=== PATIENT | male | born 1955 | race Caucasian/White ===

== ENCOUNTER 2016-12-23 13:22 | Day surgery (SDC) | payer OTHER ==
[~2016-12-23 13:22] MED LIST: TRAM100T19 PO
[2016-12-23 13:53] VITALS: BP 151/96; PULSE 72; RESP 20; TEMP 97.9; O2SAT 97
[2016-12-23] MEDS ORDERED: ALPR1TAB3 PO (14:04)
[2016-12-23] MEDS ORDERED: BACT400T PO (14:04)
[2016-12-23] MEDS ORDERED: BACL10TA PO (14:04)
[2016-12-23] MEDS ORDERED: TRAM50TA PO (14:05)
[2016-12-23 14:55] VITALS: BP 131/84; PULSE 69; RESP 20; TEMP 98; O2SAT 97
[2016-12-23] MEDS ORDERED: VANCOMYCIN 1,500 MG/NS 500 ML IV SCH ×2 (15:00)
[2016-12-23] MEDS ORDERED: SODIUM CHLORIDE 0.9% FLUSH 10 ML FLUSH IV FLUSH PRN (15:45)
[2016-12-23] MEDS ORDERED: SODIUM CHLORIDE 0.9% FLUSH 10 ML FLUSH IVF PRN ×2 (16:45)
--- NOTE | 2016-12-23 16:48 | PD.RAD ---
Radiology Post PICC Prog Note Pre Procedure Diagnosis: (1) Toe osteomyelitis, right Post Procedure Diagnosis: (1) Toe osteomyelitis, right Procedure: Right PICC line placement Procedure Date: Dec 23, 2016 Supervising Radiologist Zachary Talamantes Proceduralist/Assist: Camille Hurley, RT(R), Kiran David RT(R)() Device Side: Right Upper Sorbian: 4 single lumen cm: 40 Catheter: Power PICC Plan of Activity Patient to Unit: ROPU Patient Condition: Good PICC line can be used immediately Zachary Talamantes MD Dec 23, 2016 16:48
[2016-12-24] MEDS ORDERED: SODIUM CHLORIDE 0.9% FLUSH 10 ML FLUSH IV FLUSH SCH (09:00)
[2016-12-24] MEDS ORDERED: SODIUM CHLORIDE 0.9% FLUSH 10 ML FLUSH IVF SCH (09:00)
--- NOTE | 2016-12-27 10:56 | RADRPT ---
EXAM DATE/TIME: 12/23/2016 14:44 [facility] COMPARISON: No previous studies available for comparison. INDICATIONS : Patient with osteomyelitis in need of PICC line placement for antibiotics. MEDICAL HISTORY : Osteomyelitis right 3rd toe, Chronic back pain, HTN, COPD, Diabetes SURGICAL HISTORY : Tonsillectomy, Back surgery, Right 4th toe amputation ENCOUNTER: Initial ACUITY: 2 months PAIN SCORE: 0/10 FLUORO TIME: 0.21 minutes IMAGE SERIES: 1 ACCESS: Right basilic vein DEVICE(S): 1.) 4 Kyrgyz single lumen 40 cm Xcela Power PICC PROCEDURE : 1. Ultrasound guidance for venous catheterization. 2. Fluoroscopic guidance. 3. Ultrasound & fluoroscopic guided central venous Power PICC line placement. The risks, benefits and alternatives to the procedure were explained and verbal and written consent w as obtained. The site was prepped in sterile fashion. Full sterile technique was used, including ca p, mask, sterile gloves and gown and a large sterile sheet. Hand hygiene and 2% chlorhexidine prep w as utilized per protocol for cutaneous antisepsis with appropriate dry time for site. The skin and s ubcutaneous tissues were infiltrated with local anesthetic solution. Under direct ultrasound guidance, a suitable vein was accessed and a measuring guidewire was introduc ed and positioned in the central venous system. The ultrasound images depicting access guidance were saved and stored to PACS for permanent record. A Power Injectable PICC line was cut to prescribed length and introduced, positioned with tip at the cavoatrial junction level. The line was flushed and secured per protocol. CONCLUSION: 1. Uncomplicated central venous Power PICC line placement. 2. The PICC line can be used immediately. Zachary Talamantes MD on December 27, 2016 at 10:53 Board Certified Radiologist. This report was verified electronically.
== END 2016-12-23 17:00 | disposition home or self-care (01) ==
LOC: HROP 13:22 → HRIP 13:30 → HROP 17:00
PROVIDERS: ATTEND Specialist
DX: Z45.2 Encounter for adjustment and management of vascular access device (principal); M86.9 Osteomyelitis, unspecified; I10 Essential (primary) hypertension; J44.9 Chronic obstructive pulmonary disease, unspecified; E11.69 Type 2 diabetes mellitus with other specified complication
CPT/HCPCS: 36569; 76937; 77001; 96365; 96366; C1751; J1642; J3370; J7040

== ENCOUNTER 2017-04-19 12:56 | Inpatient (IN) | payer OTHER, MEDICARE ==
[~2017-04-19] VITALS: Ht 175.3 cm; Wt 84.9 kg
[~2017-04-19 12:56] MED LIST changes: +ALPR1TAB3 PO; +BACL10TA PO; +BACT400T PO; -TRAM100T19 PO; +TRAM50TA PO
[2017-04-19 12:58] VITALS: BP 163/93; PULSE 86; RESP 20; TEMP 98.3; O2SAT 97
--- NOTE | 2017-04-19 13:05 | PD ---
Physical Exam Date Seen by Provider: Apr 19, 2017 Time Seen by Provider: 13:03 Narrative 62 yo male here for eval of right big toe infection. per patient bad since monday but has been taking antibiotics for infections this summer. Has appointment with podiatry but not until next week. No diabetes. Vitals are stable in triage. Awaiting bed placement. Data Data Last Documented VS Vital Signs Date Time Temp Pulse Resp B/P (MAP) Pulse Ox O2 Delivery O2 Flow Rate FiO2 04/19/17 12:58 98.3 86 20 163/93 (116) 97 Room Air [facility] Medical Record Reviewed: Yes Supervised Visit with JAN: No Cali Cannon Apr 19, 2017 13:05
--- NOTE | 2017-04-19 14:30 | PD ---
HPI Chief Complaint: Skin Problem Time Seen by Provider: 14:29 Travel History International Travel<30 days: No Contact w/Intl Traveler<30days: No Traveled to known affect area: No History of Present Illness HPI 62 YO M with PMH of osteomyelitis of the right foot, DM, HTN presents to the ED for evaluation of right great toe pain and swelling times "a few days." He endorses running over the toe with his grocery cart about a month ago. He states that he noticed a blister on his toe about a week ago and he was using Silvadene on it with no improvement. Pain and swelling worsened overnight prompted seeking treatment today. He denies fever, chills, nausea, vomiting. He endorses chronic recurring foot infections, last treated earlier this year. He called Dr. Yang, his account contact associate and has follow-up next week. PFSH Past Medical History Diabetes: Yes Past Surgical History Tonsillectomy: Yes Social History Alcohol Use: Yes (2-3 times a weekly) Tobacco Use: No Substance Use: No Allergies-Medications (Allergen,Severity, Reaction): Coded Allergies: naproxen (Unverified Allergy, Mild, Rash, 04/19/17) lisinopril (Verified Allergy, Unknown, LIP SWELLING, 04/19/17) Reported Meds & Prescriptions Reported Meds & Active Scripts Active Reported Tramadol (Tramadol HCl) 50 Mg Tab 100 Mg PO BID PRN Alprazolam 1 Mg Tab 1 Mg PO HS PRN Baclofen 10 Mg Tab 10 Mg PO TID Review of Systems Except as stated in HPI: all other systems reviewed are Neg Physical Exam Narrative GENERAL: Well-nourished, well-developed pleasant white male in no acute distress. SKIN: Focused skin assessment warm/dry. HEAD: Normocephalic. EYES: No scleral icterus. No injection or drainage. NECK: Supple, trachea midline. No JVD or lymphadenopathy. CARDIOVASCULAR: Regular rate and rhythm without murmurs, gallops, or rubs. RESPIRATORY: Breath sounds equal bilaterally. No accessory muscle use. GASTROINTESTINAL: Abdomen soft, non-tender, nondistended. MUSCULOSKELETAL: No cyanosis, or edema. FOCUSED RIGHT LOWER EXTREMITY EXAM: 2+ DP pulse. The great toe is tender, erythematous and edematous. There is a small amount of purulent fluid draining from the tip of the nailbed. The foot is warm, edematous and tender. There is lymphatic streaking to the medial aspect of the mid hughes. BACK: Nontender without obvious deformity. No CVA tenderness. Data Data Last Documented VS Vital Signs Date Time Temp Pulse Resp B/P (MAP) Pulse Ox O2 Delivery O2 Flow Rate FiO2 04/19/17 16:23 76 18 121/73 (89) 97 04/19/17 12:58 98.3 Room Air Orders Orders Basic Metabolic Panel (Bmp) (04/19/17 14:46) Complete Blood Count With Diff (04/19/17 14:46) Blood Culture (04/19/17 14:48) Iv Access Insert/Monitor (04/19/17 14:48) Vancomycin Inj (Vancomycin Inj) (04/19/17 15:00) Toe (Min 2vws) (04/19/17 15:14) Westergren Sedimentation Rate (04/19/17 16:09) C-Reactive Protein (Crp) (04/19/17 16:09) Vascular Access Team Consult/P PRN (04/19/17 16:16) Vascular Poc Ultrasound (04/19/17 ) Mri Lower Leg W/Wo Contrast (04/19/17 ) Admit Order (Ed Use Only) (04/19/17 17:01) Labs Laboratory Tests Test 04/19/17 15:30 White Blood Count 7.9 TH/MM3 Red Blood Count 4.82 MIL/MM3 Hemoglobin 14.6 GM/DL Hematocrit 43.3 % Mean Corpuscular Volume 89.7 FL Mean Corpuscular Hemoglobin 30.4 PG Mean Corpuscular Hemoglobin Concent 33.9 % Red Cell Distribution Width 14.3 % Platelet Count 149 TH/MM3 Mean Platelet Volume 9.0 FL Neutrophils (%) (Auto) 67.4 % Lymphocytes (%) (Auto) 18.8 % Monocytes (%) (Auto) 12.1 % Eosinophils (%) (Auto) 1.2 % Basophils (%) (Auto) 0.5 % Neutrophils # (Auto) 5.3 TH/MM3 Lymphocytes # (Auto) 1.5 TH/MM3 Monocytes # (Auto) 1.0 TH/MM3 Eosinophils # (Auto) 0.1 TH/MM3 Basophils # (Auto) 0.0 TH/MM3 CBC Comment DIFF FINAL Differential Comment Erythrocyte Sedimentation Rate 35 mm/hr Blood Urea Nitrogen 16 MG/DL Creatinine 0.78 MG/DL Random Glucose 117 MG/DL Calcium Level 9.0 MG/DL Sodium Level 137 MEQ/L Potassium Level 4.0 MEQ/L Chloride Level 102 MEQ/L Carbon Dioxide Level 26.9 MEQ/L Anion Gap 8 MEQ/L Estimat Glomerular Filtration Rate 100 ML/MIN Hemoglobin A1c 6.2 % C-Reactive Protein 6.52 MG/DL MDM Medical Decision Making Medical Screen Exam Complete: Yes Emergency Medical Condition: Yes Differential Diagnosis Cellulitis versus osteomyelitis versus sepsis Narrative Course 62 YO M with PMH of osteomyelitis, DM, HTN presents to the ED for evaluation of right great toe pain and swelling times "a few days." He endorses running over the toe with his grocery cart about a month ago. He states that he noticed a blister on his toe about a week ago and he was using Silvadene on it with no improvement. Pain and swelling worsened overnight prompted seeking treatment today. He denies fever, chills, nausea, vomiting. He endorses chronic recurring foot infections, last treated earlier this year. Vitals reviewed. Physical exam reveals a nontoxic-appearing white male in no acute distress. The left great toe, foot and lower leg show signs of cellulitis. Given his history is currently turned for osteomyelitis. Blood cultures were ordered. Vancomycin was administered. No elevation of the white count. CRP 6.52, sedimentation rate 35. X-rays show subacute tuft fracture of the great toe.. I spoke with Dr. Mcguire who recommends MRI of the extremity--pending at this time. We'll admit the patient to medicine. Dr. Roman agrees to accept the patient. Please see medicine and podiatry notes for disposition. Thu Santo Apr 19, 2017 14:30
[2017-04-19] MEDS ORDERED: VANCOMYCIN INJ 1,000 MG in SODIUM CHLOR 0.9% 250 ML INJ 250 ML IV ONE (15:00)
--- NOTE | 2017-04-19 15:02 | PD ---
Data Data Last Documented VS Vital Signs Date Time Temp Pulse Resp B/P (MAP) Pulse Ox O2 Delivery O2 Flow Rate FiO2 04/19/17 12:58 98.3 86 20 163/93 (116) 97 Room Air Orders Orders Basic Metabolic Panel (Bmp) (04/19/17 14:46) Complete Blood Count With Diff (04/19/17 14:46) Blood Culture (04/19/17 14:48) Iv Access Insert/Monitor (04/19/17 14:48) Toe (Min 2vws) (04/19/17 14:49) Vancomycin Inj (Vancomycin Inj) (04/19/17 15:00) MDM Supervised Visit with JAN: Yes Narrative Course The history, exam, and medical decision-making in the associated midlevel provider note were completed with my assistance. I reviewed and agree with the findings presented. I attest that I had a [id number] encounter with the patient on the same day, and personally performed and documented my assessment and findings in the medical record. *My assessment and Findings: This is a 62-year-old male who has a history of recurrent osteomyelitis in his great toe. He presents today with increasing redness and swelling of his toe. He has a financial recording clerk appointment but not for a week. Grossly the toe feels infected and he has some lymphatic streaking up the leg. I suspect he will require admission for IV antibiotics. Gricelda Tejada MD Apr 19, 2017 15:02
--- NOTE | 2017-04-19 15:36 | RADRPT ---
EXAM DATE/TIME: 04/19/2017 15:06 [facility] COMPARISON: No previous studies available for comparison. INDICATIONS : Ran over toe with grocery cart one month ago. Swelling started Monday. MEDICAL HISTORY : Osteomyelitis right 3rd toe, Chronic back pain, HTN, COPD, Diabetes SURGICAL HISTORY : Tonsillectomy, Back surgery, Right 4th toe amputation ENCOUNTER: Initial ACUITY: 1 month PAIN SCORE: 0/10 LOCATION: Right Foot, 1st digit. FINDINGS: 3 views of the right great toe reveal a subacute fracture from the top. No significant angulation or distraction. There is soft tissue swelling noted. Osteoarthritic changes noted throughout the foot. T here is prior amputation of the fourth toe. No radiopaque foreign body. CONCLUSION: 1. Subacute fracture of the tuft of the great toe. Jb Keane Jr., MD on April 19, 2017 at 15:29 Board Certified Radiologist. This report was verified electronically.
[2017-04-19 15:55] LABS: AUTOMATED NEUTROPHIL # 5.3 TH/MM3 (1.8-7.7); BASOPHIL % 0.5 % (0.0-2.0); EOSINOPHIL # 0.1 TH/MM3 (0-0.4); EOSINOPHIL % 1.2 % (0.0-4.0); HEMATOCRIT 43.3 % (39.0-51.0); HEMO FLAGS DIFF FINAL; LYMPH % 18.8 % (9.0-44.0); LYMPHOCYTE # 1.5 TH/MM3 (1.0-4.8); MEAN CELL VOLUME 89.7 FL (80.0-100.0); MEAN CORPUSCULAR HEMOGLOBIN 30.4 PG (27.0-34.0); MEAN CORPUSCULAR HGB CONC 33.9 % (32.0-36.0); MONO % 12.1 % (0.0-8.0); NEUT % 67.4 % (16.0-70.0); PLATELET COUNT 149 TH/MM3 (150-450); RED BLOOD COUNT 4.82 MIL/MM3 (4.50-5.90); RED CELL DISTRIBUTION WIDTH 14.3 % (11.6-17.2); WHITE BLOOD COUNT 7.9 TH/MM3 (4.0-11.0)
[2017-04-19 16:11] LABS: BICARBONATE 26.9 MEQ/L (21.0-32.0)
[2017-04-19 16:23] VITALS: BP 121/73; PULSE 76; RESP 18; O2SAT 97
[2017-04-19] MEDS ORDERED: GADODIAMIDE PF 287 MG/ML 5 ML VIAL (for RAD MRI) IV PUSH ONE (17:03)
--- NOTE | 2017-04-19 17:33 | HHI.HP ---
[facility] [place] [facility] Nguyễn Schwarz, Admission Diagnosis cellulitis right foot Diagnoses: Chief Complaint: Right foot infection Travel History International Travel<30 Days: No Contact w/Intl Traveler <30 Da: No Traveled to Known Affected Are: No History of Present Illness Written by Joe Stover, acting as scribe for Dr. Roman on 04/19/17 at 17:33. 62-year-old male with a past medical history of HTN, borderline DM, chronic back pain, and recurrent right foot infections who presented with right foot infection. The patient states that last weekend he noticed a blister on his right great toe. He states the blister started oozing around Monday. He states that he was using topical Silvadene on it. He states that yesterday the toe became more red and swollen. 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 Yang, and has an appointment to see him next week. The patient felt like the infection in his foot was getting worse today so he came to the ED for evaluation. When asked about any injury, the patient does recall that he ran over his toe with grocery cart about a month ago. The patient denies any fevers or chills. He does have a history of right fourth toe amputation. He also had been dealing with right third toe infection last spring. Podiatry was contacted from the ED and recommended MRI and consultation. Review of Systems Except as stated in HPI: all other systems reviewed are Neg Past Family Social History Past Medical History Borderline diabetes History of hypertension, currently off medication Chronic back pain Insomnia History of right foot infections Past Surgical History Right fourth toe amputation Tonsillectomy Back surgery Reported Medications Reported Tramadol (Tramadol HCl) 50 Mg Tab 100 Mg PO BID PRN Alprazolam 1 Mg Tab 1 Mg PO HS PRN Baclofen 10 Mg Tab 10 Mg PO TID Allergies: Coded Allergies: naproxen (Unverified Allergy, Mild, Rash, 04/19/17) lisinopril (Verified Allergy, Unknown, LIP SWELLING, 04/19/17) Family History Father at age 77 of a heart attack Mother 84 and healthy Social History History tobacco use, quit 12 years ago Drinks 2 or 3 beers most days, denies any problem with withdrawals Denies any drug use Physical Exam Vital Signs Vital Signs Date Time Temp Pulse Resp B/P (MAP) Pulse Ox O2 Delivery O2 Flow Rate FiO2 04/19/17 16:23 76 18 121/73 (89) 97 04/19/17 12:58 98.3 86 20 163/93 (116) 97 Room Air Physical Exam GENERAL: Well-developed well-nourished. In no acute distress. SKIN: Warm and dry. Right great toe infection. HEENT: Normocephalic. Pupils equal and round. Mucous membranes pink and moist. CARDIOVASCULAR: Regular rate and rhythm. No murmur appreciated. RESPIRATORY: No accessory muscle use. Clear to auscultation. Breath sounds equal bilaterally. GASTROINTESTINAL: Abdomen soft, non-tender, nondistended. Bowel sounds x4. MUSCULOSKELETAL: Right great toe with swelling, erythema; good capillary refill. Lymphangitic streaking up the right medial leg. Previous right fourth toe amputation. Palpable DP pulse on the right. NEUROLOGICAL: Awake and alert. No focal neurological deficits. Moves upper and lower extremities spontaneously. Normal speech. PSYCHIATRIC: Appropriate mood and affect; insight and judgment normal. Laboratory Laboratory Tests Test 04/19/17 15:30 White Blood Count 7.9 Red Blood Count 4.82 Hemoglobin 14.6 Hematocrit 43.3 Mean Corpuscular Volume 89.7 Mean Corpuscular Hemoglobin 30.4 Mean Corpuscular Hemoglobin Concent 33.9 Red Cell Distribution Width 14.3 Platelet Count 149 Mean Platelet Volume 9.0 Neutrophils (%) (Auto) 67.4 Lymphocytes (%) (Auto) 18.8 Monocytes (%) (Auto) 12.1 Eosinophils (%) (Auto) 1.2 Basophils (%) (Auto) 0.5 Neutrophils # (Auto) 5.3 Lymphocytes # (Auto) 1.5 Monocytes # (Auto) 1.0 Eosinophils # (Auto) 0.1 Basophils # (Auto) 0.0 CBC Comment DIFF FINAL Differential Comment Blood Urea Nitrogen 16 Creatinine 0.78 Random Glucose 117 Calcium Level 9.0 Sodium Level 137 Potassium Level 4.0 Chloride Level 102 Carbon Dioxide Level 26.9 Anion Gap 8 Estimat Glomerular Filtration Rate 100 Date/Time Source Procedure Growth Status 04/19/17 15:35 Blood Peripheral Aerobic Blood Culture Pending Received 04/19/17 15:35 Blood Peripheral Anaerobic Blood Culture Pending Received Result Diagram: 04/19/17 1530 04/19/17 1530 Imaging Last Impressions Toe X-Ray 04/19/17 1514 Signed Impressions: Service Date/Time: Wednesday, April 19, 2017 15:06 - CONCLUSION: 1. Subacute fracture of the tuft of the great toe. MD Maricel Jenkins Jr. VTE Risk Assessment Caprini VTE Risk Assessment: Mod/High Risk (score >= 2) Caprini Risk Assessment Model Point Value = 1 Point Value = 2 Point Value = 3 Point Value = 5 Age 41-60 Minor surgery BMI > 25 kg/m2 Swollen legs Varicose veins or History of unexplained or recurrent spontaneous Oral contraceptives or hormone replacement Sepsis (< 1 month) Serious lung disease, including pneumonia (< 1 month) Abnormal pulmonary function Acute myocardial infarction Congestive heart failure (< 1 month) History of inflammatory bowel disease Medical patient at bed rest Age 61-74 Arthroscopic surgery Major open surgery (> 45 min) Laparoscopic surgery (> 45 min) Malignancy Confined to bed (> 72 hours) Immobilizing plaster cast Central venous access Age >= 75 History of VTE Family history of VTE Factor V Leiden Prothrombin [id number] Lupus anticoagulant Anticardiolipin antibodies Elevated serum homocysteine Heparin-induced thrombocytopenia Other congenital or acquired thrombophilia Stroke (< 1 month) Elective arthroplasty Hip, pelvis, or leg fracture Acute spinal cord injury (< 1 month) Prophylaxis Regimen Total Risk Factor Score Risk Level Prophylaxis Regimen 0-1 Low Early ambulation 2 Moderate Order ONE of the following: *Sequential Compression Device (SCD) *Heparin 5000 units SQ BID 3-4 Higher Order ONE of the following medications: *Heparin 5000 units SQ TID *Enoxaparin/Lovenox 40 mg SQ daily (WT < 150 kg, CrCl > 30 mL/min) *Enoxaparin/Lovenox 30 mg SQ daily (WT < 150 kg, CrCl > 10-29 mL/min) *Enoxaparin/Lovenox 30 mg SQ BID (WT < 150 kg, CrCl > 30 mL/min) AND/OR *Sequential Compression Device (SCD) 5 or more Highest Order ONE of the following medications: *Heparin 5000 units SQ TID (Preferred with Epidurals) *Enoxaparin/Lovenox 40 mg SQ daily (WT < 150 kg, CrCl > 30 mL/min) *Enoxaparin/Lovenox 30 mg SQ daily (WT < 150 kg, CrCl > 10-29 mL/min) *Enoxaparin/Lovenox 30 mg SQ BID (WT < 150 kg, CrCl > 30 mL/min) AND *Sequential Compression Device (SCD) Assessment and Plan Assessment and Plan 62-year-old male with a past medical history of HTN, borderline DM, chronic back pain, and recurrent right foot infections who presented with right foot infection Right great toe infection: Patient with significant swelling, erythema, warmth, and lymphangitic streaking from the right great toe. Afebrile with no leukocytosis. Toe x-ray shows subacute tuft fracture, possibly secondary to recent shopping cart trauma. Podiatry was contacted and recommended MRI and consultation to them. IV antibiotics with vancomycin and Levaquin. Follow-up podiatry recommendations. Consult ID. Borderline diabetes: Diet controlled per patient, never been on medications. Check hemoglobin A1c. Monitor Accu-Cheks. SSI coverage if needed. Hypertension: Patient states she is recently started on lisinopril, however had throat swelling and was taken off. Currently on no medications. Clonidine as needed. Monitor and adjust medications as needed. Other chronic medical conditions include chronic back pain and insomnia: Stable of this time will continue home medications as indicated. DVT prophylaxis: Heparin This note was transcribed by racheal [Joe Stover]. I, Dr. Gela Roman personally performed the history, physical exam, and medical decision making; and confirmed the accuracy of the information in the transcribed note. Authenticated by Dr. Gela Roman on 04/19/17 at 17:33. Discussed Condition With Patient, ED staff Joe Stover Apr 19, 2017 17:33 Gela Roman MD Apr 19, 2017 17:33
[2017-04-19] MEDS ORDERED: SODIUM CHLORIDE 0.9% FLUSH 10 ML FLUSH IV FLUSH PRN (17:45)
[2017-04-19] MEDS ORDERED: NALOXONE HCL 0.4 MG/ML AMP IV PRN (17:45)
[2017-04-19] MEDS ORDERED: ONDANSETRON HCL 4 MG/2 ML VIAL IVP PRN (17:45)
[2017-04-19] MEDS ORDERED: LACTULOSE SYRUP 20 GM/30 ML CUP PO PRN (17:45)
[2017-04-19] MEDS ORDERED: BISACODYL 10 MG SUPP RECTAL PRN (17:45)
[2017-04-19] MEDS ORDERED: traMADol HCL 50 MG TAB PO PRN (17:45)
[2017-04-19] MEDS ORDERED: MORPHINE SULFATE 4 MG/ML INJ IV PRN (17:45)
[2017-04-19] MEDS ORDERED: MAGNESIUM HYDROXIDE SUSP 30 ML CUP PO PRN (17:45)
[2017-04-19] MEDS ORDERED: SENNOSIDES 8.6 MG TAB PO PRN (17:45)
[2017-04-19] MEDS: BACLOFEN 10 MG TAB PO SCH (18:00)
[2017-04-19] MEDS ORDERED: cloNIDine HCL 0.1 MG TAB PO PRN (18:00)
[2017-04-19] MEDS ORDERED: GLUCAGON 1 MG/ML VIAL OTHER PRN (18:00)
[2017-04-19] MEDS ORDERED: Vancomycin Consult Pharmacy 1 EA OTHER SCH (18:00)
[2017-04-19] MEDS ORDERED: DEXTROSE 50% IN WATER 50 ML VIAL(D50) IV PRN (18:00)
[2017-04-19 20:50] VITALS: BP 153/80; PULSE 78; RESP 20; TEMP 97.8; O2SAT 94
[2017-04-19] MEDS: INSULIN ASPART SUPPLEMENTAL SCALE SQ SCH (21:00)
--- NOTE | 2017-04-19 21:01 | RADRPT ---
EXAM DATE/TIME: 04/19/2017 19:46 [facility] COMPARISON: No previous studies available for comparison. INDICATIONS : Right great toe swelling with discharge. CONTRAST: 17 cc Omniscan (gadodiamide) IV MEDICAL HISTORY : None. SURGICAL HISTORY : Tonsillectomy. Discectomy, lumbar. Right toe surgery. ENCOUNTER: Subsequent ACUITY: 1 month PAIN SCORE: 0/10 LOCATION: Right foot TECHNIQUE: Multiplanar, multisequence MRI examination was performed without contrast and after the intravenous a dministration of gadolinium. FINDINGS: There is extensive marrow edema and marrow enhancement of the distal phalanx of the great toe. There is surrounding soft tissue swelling and edema. The findings are most characteristic of osteomyelitis of the distal phalanx great toe. The fourth toe has been previously amputated. No acute finding identified in the metatarsals. No abno rmal fluid collections. CONCLUSION: 1. Abnormal marrow edema, marrow enhancement and soft tissue swelling involving the distal phalanx gr eat toe most characteristic of osteomyelitis. No other areas of osteomyelitis identified. Ventura Vu MD on April 19, 2017 at 20:55 Board Certified Radiologist. This report was verified electronically.
--- NOTE | 2017-04-19 21:17 | RADRPT ---
EXAM DATE/TIME: 04/19/2017 19:46 [facility] COMPARISON: No previous studies available for comparison. INDICATIONS : Cellulitis. Lower medial calf redness. CONTRAST: 17 cc Omniscan (gadodiamide) IV MEDICAL HISTORY : None. SURGICAL HISTORY : Tonsillectomy. Discectomy, lumbar. Right toe surgery. ENCOUNTER: Subsequent ACUITY: 1 month PAIN SCORE: 0/10 LOCATION: Right calf. TECHNIQUE: Multiplanar multisequence MRI examination of the lower leg was performed with and without contrast. FINDINGS: BONE/CARTILAGE: Bone marrow signal is homogeneous. Articular cartilage signal is within normal limits. MUSCLES/TENDONS: All of the visualized muscles and tendons are intact. MISCELLANEOUS: Neurovascular structures are within normal limits. POST-CONTRAST: There is a mild enhancement in the area of cellulitis in the medial calf associated with subcutaneous edema. CONCLUSION: 1. Subcutaneous edema and mild enhancement in the soft tissues of the medial calf characteristic of m ild cellulitis. No discrete abscess. No evidence for osteomyelitis. Ventura Vu MD on April 19, 2017 at 21:10 Board Certified Radiologist. This report was verified electronically.
[2017-04-19] MEDS: SODIUM CHLORIDE 0.9% FLUSH 10 ML FLUSH IV FLUSH SCH (22:23)
[2017-04-19] MEDS: LEVOFLOXACIN 750 MG PREMIX INJ 150 ML IV SCH (22:23)
[2017-04-19] MEDS: HEPARIN SODIUM - SQ 10,000 UNITS/ML VIAL SQ SCH (22:29)
[2017-04-19 22:31] LABS: HEMOGLOBIN A1a 1.2 %; HEMOGLOBIN A1b 0.8 %; HEMOGLOBIN F 1.8 %; HEMOGLOBIN LA1C 2.1 %; HEMOGLOBIN P3 3.6 %
[2017-04-20 00:23] VITALS: BP 113/63; PULSE 67; RESP 20; TEMP 97.8; O2SAT 97
[2017-04-20 04:19] VITALS: BP 98/61; PULSE 70; RESP 18; TEMP 98.3; O2SAT 97
[2017-04-20 04:47] LABS: AUTOMATED NEUTROPHIL # 2.7 TH/MM3 (1.8-7.7); BASOPHIL % 0.8 % (0.0-2.0); EOSINOPHIL # 0.1 TH/MM3 (0-0.4); EOSINOPHIL % 2.1 % (0.0-4.0); HEMATOCRIT 41.3 % (39.0-51.0); HEMO FLAGS DIFF FINAL; LYMPH % 26.1 % (9.0-44.0); LYMPHOCYTE # 1.2 TH/MM3 (1.0-4.8); MEAN CELL VOLUME 89.3 FL (80.0-100.0); MEAN CORPUSCULAR HEMOGLOBIN 31.2 PG (27.0-34.0); MEAN CORPUSCULAR HGB CONC 34.9 % (32.0-36.0); MONO % 14.2 % (0.0-8.0); NEUT % 56.8 % (16.0-70.0); PLATELET COUNT 129 TH/MM3 (150-450); RED BLOOD COUNT 4.62 MIL/MM3 (4.50-5.90); RED CELL DISTRIBUTION WIDTH 13.9 % (11.6-17.2); WHITE BLOOD COUNT 4.7 TH/MM3 (4.0-11.0)
[2017-04-20 05:11] LABS: ALKALINE PHOSPHATASE 59 U/L (45-117); TOTAL BILIRUBIN ADULT 0.9 MG/DL (0.2-1.0)
[2017-04-20 05:12] LABS: ALT (GPT) 28 U/L (12-78); ANION GAP 7 MEQ/L (5-15); AST (GOT) 35 U/L (15-37); BLOOD UREA NITROGEN 14 MG/DL (7-18); CHLORIDE 102 MEQ/L (98-107); GLOMERULAR FILTRATION RATE 112 ML/MIN (>89); POTASSIUM 4.7 MEQ/L (3.5-5.1); SODIUM (NA) 138 MEQ/L (136-145)
[2017-04-20] MEDS ORDERED: VANCOMYCIN INJ 1,250 MG in SODIUM CHLOR 0.9% 250 ML INJ 250 ML IV SCH ×2 (06:00→09:00)
[2017-04-20] MEDS: INSULIN ASPART SUPPLEMENTAL SCALE SQ SCH ×4 (06:07→21:00)
[2017-04-20 07:20] VITALS: BP 121/66; PULSE 67; RESP 18; TEMP 97.8; O2SAT 97
[2017-04-20] MEDS: traMADol HCL 50 MG TAB PO PRN ×2 (10:13→21:32)
[2017-04-20] MEDS: BACLOFEN 10 MG TAB PO SCH ×3 (10:13→18:44)
[2017-04-20] MEDS: SODIUM CHLORIDE 0.9% FLUSH 10 ML FLUSH IV FLUSH SCH ×2 (10:14→21:22)
[2017-04-20] MEDS: HEPARIN SODIUM - SQ 10,000 UNITS/ML VIAL SQ SCH ×2 (10:14→21:21)
--- NOTE | 2017-04-20 11:33 | HHI.PR ---
Subjective Remarks Follow-up for right great toe osteomyelitis. Patient feels like the swelling and erythema in his leg had improved somewhat overnight. Denies any fevers or chills. He denies any pain. Awaiting podiatry input. Objective Vitals Vital Signs Date Time Temp Pulse Resp B/P (MAP) Pulse Ox O2 Delivery O2 Flow Rate FiO2 04/20/17 08:17 21 04/20/17 07:20 97.8 67 18 121/66 (84) 97 04/20/17 04:19 98.3 70 18 98/61 (73) 97 04/20/17 00:23 97.8 67 20 113/63 (80) 97 04/19/17 20:50 97.8 78 20 153/80 (104) 94 04/19/17 20:37 21 04/19/17 20:03 04/19/17 16:23 76 18 121/73 (89) 97 04/19/17 12:58 98.3 86 20 163/93 (116) 97 Room Air I/O 04/19/17 04/19/17 04/19/17 04/20/17 04/20/17 04/20/17 07:00 15:00 23:00 07:00 15:00 23:00 Intake Total 730 ml 140 ml 240 ml Output Total 400 ml Balance 730 ml 140 ml -160 ml Intake Oral 480 ml IV Total 250 ml 140 ml 240 ml Output Urine Total 400 ml # Voids 1 2 Result Diagram: 04/20/17 0421 04/20/17 0421 Imaging Last Impressions Toe X-Ray 04/19/17 1514 Signed Impressions: Service Date/Time: Wednesday, April 19, 2017 15:06 - CONCLUSION: 1. Subacute fracture of the tuft of the great toe. Jb Keane Jr., MD Lower Extremity MRI 04/19/17 0000 Signed Impressions: Service Date/Time: Wednesday, April 19, 2017 19:46 - CONCLUSION: 1. Subcutaneous edema and mild enhancement in the soft tissues of the medial calf characteristic of mild cellulitis. No discrete abscess. No evidence for osteomyelitis. Ventura Vu MD Foot MRI 04/19/17 0000 Signed Impressions: Service Date/Time: Wednesday, April 19, 2017 19:46 - CONCLUSION: 1. Abnormal marrow edema, marrow enhancement and soft tissue swelling involving the distal phalanx great toe most characteristic of osteomyelitis. No other areas of osteomyelitis identified. Ventura Vu MD Objective Remarks GENERAL: Well-developed well-nourished. In no acute distress. SKIN: Warm and dry. Right great toe infection. HEENT: Normocephalic. Pupils equal and round. Mucous membranes pink and moist. CARDIOVASCULAR: Regular rate and rhythm. No murmur appreciated. RESPIRATORY: No accessory muscle use. Clear to auscultation. Breath sounds equal bilaterally. GASTROINTESTINAL: Abdomen soft, non-tender, nondistended. Bowel sounds x4. MUSCULOSKELETAL: Right great toe with swelling, erythema. Improving erythema and edema of the right ankle and calf. NEUROLOGICAL: Awake and alert. No focal neurological deficits. Moves upper and lower extremities spontaneously. Normal speech. PSYCHIATRIC: Appropriate mood and affect; insight and judgment normal. A/P Assessment and Plan 62-year-old male with a past medical history of HTN, borderline DM, chronic back pain, and recurrent right foot infections who presented with right foot infection Right great toe osteomyelitis: Patient with significant swelling, erythema, warmth, and lymphangitic streaking from the right great toe. Reviewed: Afebrile with no leukocytosis. Elevated ESR and CRP. Toe x-ray shows subacute tuft fracture, possibly secondary to recent shopping cart trauma. Foot MRI shows findings characteristic of osteomyelitis of the great toe. Right lower extremity MRI showed findings consistent with mild cellulitis , no abscess or osteomyelitis. -Podiatry consulted, appreciate input -ID consulted, discussed with Dr. Espino, awaiting podiatry input. -Continue IV antibiotics with vancomycin and Levaquin. Diet-controlled diabetes mellitus: Hemoglobin A1c 6.2, has been in that range for 10 years per patient. Continue diabetic diet. Monitor Accu-Cheks. SSI coverage if needed. Hypertension: Patient states he was recently started on lisinopril, however had throat swelling and was taken off. Currently on no medications. BP currently well controlled. Clonidine as needed. Monitor and adjust medications as needed. Other chronic medical conditions include chronic back pain and insomnia: Stable of this time will continue home medications as indicated. DVT prophylaxis: Heparin Discharge Planning Follow-up specialist's input. Admitted to inpatient. Joe Stover Apr 20, 2017 11:33
--- NOTE | 2017-04-20 13:03 | MB ---
cc: ALEENA LOPEZ MD DATE OF CONSULTATION: 04/20/[address] Roman. REASON FOR CONSULTATION Foot/toe infection. HISTORY OF PRESENT ILLNESS This is a 62-year-old white male who developed drainage from the right great toe approximately 6 days ago. The patient presented to the emergency department for evaluation because his toe got swollen and red. The patient has history of hypertension. He is noted to be borderline diabetic but has not been on diabetic medications. The patient reports that about a month ago a shopping cart ran over the great toe and subsequently developed a blister in that location at the corner of the nailbed towards the edge of the toe. He noted that approximately 6 days ago he noticed a blister and then after he took off his shoe the following day he noted some drainage at that location. He started using silver Silvadene cream and wrapping the toe. He subsequently noted that it became more swollen on the weekend and at the beginning of the week he tried to get an appointment with podiatry and he was told that he could not see him for about a week. He subsequently came to the emergency department for evaluation yesterday. The toe is markedly swollen and erythematous but there is no drainage coming from that location. An MRI was performed and it shows abnormal marrow edema and soft tissue swelling involving the distal phalanx most characteristic of osteomyelitis. The patient denies pain in the toe. He denies other symptoms including fever, chills or nausea or vomiting. Besides the toe being swollen and red he feels okay. PAST MEDICAL HISTORY 1. Hypertension. 2. Back surgery. 3. History of skin cancer. 4. History of amputation of the right fourth toe because of infection in April 2015. 5. History of right third toe infection treated with intravenous antibiotics times 4 weeks. ALLERGIES LISINOPRIL CAUSED SWELLING AND CLOSING UP OF THE THROAT. NAPROXEN. MEDICATIONS 1. Vancomycin. 2. Levaquin. 3. Heparin. 4. Ultram. 5. Baclofen. SOCIAL HISTORY Former smoker, the patient quit smoking cigarettes 12 years ago. Positive alcohol. Positive marijuana use. FAMILY HISTORY Cardiovascular disease in the patient's father who of heart attack at age 77. REVIEW OF SYSTEMS CONSTITUTIONAL: No fever or chills. HEENT: No visual blurring or diplopia. No difficulty swallowing or soreness of the throat. No nasal bleeding or discharge. NECK: No neck swelling or pain. CARDIOVASCULAR: No palpitation or chest pain. RESPIRATORY: No cough or shortness of breath. GASTROINTESTINAL: No nausea, vomiting, abdominal pain or diarrhea. GENITOURINARY: Denies urgency, frequency or dysuria. MUSCULOSKELETAL: Significant for chronic back pain. No other joint aches or pains. Hematopoietic, no easy bruising or bleeding. INTEGUMENTARY: No skin rash or itching. ENDOCRINE: No polyuria, polydipsia. NEUROLOGIC: No problems with coordination or gait. PSYCHIATRIC: No problems with depression or abnormal mood. PHYSICAL EXAMINATION GENERAL: This is a pleasant slender male, in no acute distress. He is awake and alert and oriented. VITAL SIGNS: Temperature 97.8, BP 121/66, respirations 18, heart rate 67. HEENT: The head is atraumatic. Extraocular movements grossly intact, pupils reactive to light. No icterus. Oropharynx moist mucosa without lesions. NECK: Supple. No adenopathy. LUNGS: Clear. HEART: Regular rate and rhythm. No murmurs, rubs or gallops. ABDOMEN: Bowel sounds present, soft, nontender. RECTAL: Not performed. EXTREMITIES: The right great toe is markedly swollen approximately two and a half times the size of the left which is normal. The right great toe has erythema encompassing the entire toe. There is very mild erythema at the base of the toe. There is macerated area at the corner of the nailbed on the outer aspect of the great toe and a little bit of the tuft of the toe at that location but there is no drainage expressed on squeezing the area. The toe is warm to touch. The rest of the extremities have no clubbing, cyanosis, edema. SKIN: No diffuse rash. NEUROLOGIC: No gross focal findings. PSYCHIATRIC: The patient is calm and cooperative. LABORATORY DATA WBC 4.7, platelet count 129, hemoglobin 14.4, sedimentation rate 35, C-reactive protein 6.52. Liver function tests normal, creatinine 0.71, estimated GFR 112. Blood culture from 04/19 pending. IMPRESSION 1. Osteomyelitis involving the right great toe. 2. Cellulitis involving the right great toe. RECOMMENDATIONS 1. Continue vancomycin. 2. Continue Levaquin. 3. Await podiatry evaluation since the patient may need to have surgical intervention. Because there is no drainage I cannot focus antibiotics on a specific organism and therefore I may have to rely on podiatry to get a culture since the bone is involved and we would definitely like to try to get focused antibiotic treatment. Thank you for this consultation. The patient's progress will be monitored and further recommendations will be given upon followup. The blood cultures will also be monitored. Aleena Lopez MD FD/REECE /11:28 AM /12:33 PM
[2017-04-20 15:02] VITALS: BP 138/83; PULSE 68; RESP 18; TEMP 98.2; O2SAT 96
[2017-04-20] MEDS: VANCOMYCIN INJ 1,750 MG in SODIUM CHLORID 0.9% 500 ML INJ 500 ML IV SCH (15:15)
[2017-04-20 15:52] VITALS: BP 126/76; PULSE 68; RESP 12; TEMP 95.8; O2SAT 97
[2017-04-20 20:00] VITALS: BP 131/80; PULSE 61; RESP 18; TEMP 96.5; O2SAT 98
--- NOTE | 2017-04-20 20:10 | PD.CONS ---
History of Present Illness Service Podiatry Consult Requested By Reason for Consult R distal hallux infection Primary Care Physician Nguyễn Schwarz, DO Diagnoses: History of Present Illness 62-year-old male with a past medical history of HTN, borderline DM, chronic back pain, and recurrent right foot infections who presented with right foot infection. His last visit was in mid-February with Dr Yang regarding an unrelated 3rd digit infection. He since developed a blood blister on the tip of the great toe about a month ago when he had his foot run over by a grocery cart , then noticed drainage from the area about a week ago with redness. He states the blister started oozing around Monday, so he started putting Silvadene on it. He called the office to be seen, but thought it was more serious, so came in to hospital for evaluation. . 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 Yang, and has an appointment to see him next week. The patient felt like the infection in his foot was getting worse today so he came to the ED for evaluation. Past Family Social History Allergies: Coded Allergies: naproxen (Unverified Allergy, Mild, Rash, 04/19/17) lisinopril (Verified Allergy, Unknown, LIP SWELLING, 04/19/17) Past Medical History Borderline diabetes History of hypertension, currently off medication Chronic back pain Insomnia History of right foot infections Past Surgical History Right fourth toe amputation Tonsillectomy Back surgery Active Ordered Medications Current Medications Medications (Trade) Dose Ordered Sig/Kings Route Start Time Stop Time Status Last Admin (Xanax) 1 mg HS PRN PO 04/19/17 17:45 04/20/17 21:31 (Lioresal) 10 mg TID PO 04/19/17 18:00 04/21/17 09:25 (NS Flush) 2 ml UNSCH PRN IV FLUSH 04/19/17 17:45 (NS Flush) 2 ml BID IV FLUSH 04/19/17 21:00 04/21/17 09:26 (Zofran Inj) 4 mg Q6H PRN IVP 04/19/17 17:45 (Heparin Inj) 5,000 units Q12HR SQ 04/19/17 21:00 04/21/17 09:26 (Morphine Inj) 4 mg Q3H PRN IV 04/19/17 17:45 (Narcan Inj) 0.4 mg UNSCH PRN IV 04/19/17 17:45 (Milk Of Magnesia Liq) 30 ml Q12H PRN PO 04/19/17 17:45 (Senokot) 17.2 mg Q12H PRN PO 04/19/17 17:45 (Dulcolax Supp) 10 mg DAILY PRN RECTAL 04/19/17 17:45 (Lactulose Liq) 30 ml DAILY PRN PO 04/19/17 17:45 Levofloxacin/ Dextrose 150 ml @ 100 mls/hr Q24H IV 04/19/17 21:00 04/20/17 21:20 (Ultram) 100 mg TID PRN PO 04/19/17 18:00 04/21/17 09:25 Pharmacy Profile Note 0 ml @ 0 mls/hr UNSCH OTHER 04/19/17 18:00 (D50w (Vial) Inj) 50 ml UNSCH PRN IV 04/19/17 18:00 (Glucagon Inj) 1 mg UNSCH PRN OTHER 04/19/17 18:00 (NovoLOG SUPPLEMENTAL SCALE) 1 ACHS SLIDING SCALE SQ 04/19/17 21:00 (Catapres) 0.1 mg Q6H PRN PO 04/19/17 18:00 Vancomycin HCl 1750 mg/Sodium Chloride 517.5 ml @ 250 mls/hr Q12H IV 04/20/17 15:00 04/21/17 04:35 Miscellaneous Information SPECIFIC LAB TO BE DRAWN:VANCOMYCIN TROUGH DATE TO... ONCE ONCE .XX 04/22/17 02:45 04/22/17 02:46 Family History Father at age 77 of a heart attack Mother 84 and healthy Social History History tobacco use, quit 12 years ago Drinks 2 or 3 beers most days, denies any problem with withdrawals Denies any drug use Physical Exam Vital Signs Vital Signs Date Time Temp Pulse Resp B/P (MAP) Pulse Ox O2 Delivery O2 Flow Rate FiO2 04/20/17 15:52 95.8 68 12 126/76 (93) 97 04/20/17 15:02 98.2 68 18 138/83 (101) 96 04/20/17 08:17 21 04/20/17 07:20 97.8 67 18 121/66 (84) 97 04/20/17 04:19 98.3 70 18 98/61 (73) 97 04/20/17 00:23 97.8 67 20 113/63 (80) 97 04/19/17 20:50 97.8 78 20 153/80 (104) 94 04/19/17 20:37 21 Physical Exam R 4th toe previous amputation. R hallux is erythematous, edematous, with mild purulence coming from a punctate lesion to central toenail bed area. No visible bone in wound. No pain secondary to neuropathy. No lymphangitis noted. Warm skin temperature. Laboratory Laboratory Tests Test 04/20/17 04:21 White Blood Count 4.7 Red Blood Count 4.62 Hemoglobin 14.4 Hematocrit 41.3 Mean Corpuscular Volume 89.3 Mean Corpuscular Hemoglobin 31.2 Mean Corpuscular Hemoglobin Concent 34.9 Red Cell Distribution Width 13.9 Platelet Count 129 Mean Platelet Volume 9.5 Neutrophils (%) (Auto) 56.8 Lymphocytes (%) (Auto) 26.1 Monocytes (%) (Auto) 14.2 Eosinophils (%) (Auto) 2.1 Basophils (%) (Auto) 0.8 Neutrophils # (Auto) 2.7 Lymphocytes # (Auto) 1.2 Monocytes # (Auto) 0.7 Eosinophils # (Auto) 0.1 Basophils # (Auto) 0.0 CBC Comment DIFF FINAL Differential Comment Blood Urea Nitrogen 14 Creatinine 0.71 Random Glucose 112 Total Protein 7.0 Albumin 3.3 Calcium Level 8.9 Alkaline Phosphatase 59 Aspartate Amino Transf (AST/SGOT) 35 Alanine Aminotransferase (ALT/SGPT) 28 Total Bilirubin 0.9 Sodium Level 138 Potassium Level 4.7 Chloride Level 102 Carbon Dioxide Level 29.0 Anion Gap 7 Estimat Glomerular Filtration Rate 112 Date/Time Source Procedure Growth Status 04/19/17 15:35 Blood Peripheral Aerobic Blood Culture - Preliminary NO GROWTH IN 1 DAY Resulted 04/19/17 15:35 Blood Peripheral Anaerobic Blood Culture - Preliminary NO GROWTH IN 1 DAY Resulted Result Diagram: 04/20/17 0421 04/20/17 0421 Imaging Last Impressions Toe X-Ray 04/19/17 1514 Signed Impressions: Service Date/Time: Monday, April 19, 2017 15:06 - CONCLUSION: 1. Subacute fracture of the tuft of the great toe. Jb Keane Jr., MD Lower Extremity MRI 04/19/17 0000 Signed Impressions: Service Date/Time: Wednesday, April 19, 2017 19:46 - CONCLUSION: 1. Subcutaneous edema and mild enhancement in the soft tissues of the medial calf characteristic of mild cellulitis. No discrete abscess. No evidence for osteomyelitis. Ventura Vu MD Foot MRI 04/19/17 0000 Signed Impressions: Service Date/Time: Wednesday, April 19, 2017 19:46 - CONCLUSION: 1. Abnormal marrow edema, marrow enhancement and soft tissue swelling involving the distal phalanx great toe most characteristic of osteomyelitis. No other areas of osteomyelitis identified. Ventura Vu MD Assessment and Plan Assessment and Plan Osteomyelitis Right distal hallux Plan to OR Monday for amputation. Discussed with patient and he is agreeable. NPO after midnight Consent ordered Williams Mcguire DPM Apr 20, 2017 20:10
[2017-04-20] MEDS: LEVOFLOXACIN 750 MG PREMIX INJ 150 ML IV SCH (21:20)
[2017-04-20] MEDS: ALPRAZolam 1 MG TAB PO PRN (21:31)
[2017-04-21] VITALS: BP 105/68; PULSE 71; RESP 18; TEMP 96.6; O2SAT 97
[2017-04-21] MEDS: VANCOMYCIN INJ 1,750 MG in SODIUM CHLORID 0.9% 500 ML INJ 500 ML IV SCH ×2 (04:35→16:47)
[2017-04-21] MEDS: INSULIN ASPART SUPPLEMENTAL SCALE SQ SCH ×4 (04:41→21:00)
[2017-04-21] MEDS ORDERED: PHARMACY ORDERED LAB ONE (05:45)
[2017-04-21 08:00] VITALS: BP 114/67; PULSE 59; RESP 16; TEMP 97.4; O2SAT 98
[2017-04-21] MEDS: BACLOFEN 10 MG TAB PO SCH ×3 (09:25→18:21)
[2017-04-21] MEDS: traMADol HCL 50 MG TAB PO PRN ×2 (09:25→21:55)
[2017-04-21] MEDS: HEPARIN SODIUM - SQ 10,000 UNITS/ML VIAL SQ SCH ×2 (09:26→21:53)
[2017-04-21] MEDS: SODIUM CHLORIDE 0.9% FLUSH 10 ML FLUSH IV FLUSH SCH ×2 (09:26→21:52)
[2017-04-21 09:57] VITALS: O2SAT 97
[2017-04-21 11:29] VITALS: BP 122/73; PULSE 61; RESP 18; TEMP 96.6; O2SAT 97
--- NOTE | 2017-04-21 11:52 | HHI.PR ---
Subjective Remarks Patient reports is feeling okay. He would like his pain medication to be given earlier in the morning just like he takes at home. No fevers or chills. Objective Vitals Vital Signs Date Time Temp Pulse Resp B/P (MAP) Pulse Ox O2 Delivery O2 Flow Rate FiO2 04/21/17 11:29 96.6 61 18 122/73 (89) 97 04/21/17 08:00 97.4 59 16 114/67 (83) 98 04/21/17 00:00 96.6 71 18 105/68 (80) 97 04/20/17 20:00 96.5 61 18 131/80 (97) 98 04/20/17 15:52 95.8 68 12 126/76 (93) 97 04/20/17 15:02 98.2 68 18 138/83 (101) 96 I/O 04/20/17 04/20/17 04/20/17 04/21/17 04/21/17 04/21/17 07:00 15:00 23:00 07:00 15:00 23:00 Intake Total 140 ml 240 ml 720 ml 470 ml Output Total 400 ml Balance 140 ml -160 ml 720 ml 470 ml Intake Oral 720 ml 320 ml IV Total 140 ml 240 ml 150 ml Output Urine Total 400 ml # Voids 2 7 2 # Bowel Movements 2 0 Result Diagram: 04/20/1742004/20/17420 Objective Remarks GENERAL: This is a well-nourished, well-developed patient, in no apparent distress. CARDIOVASCULAR: Normal rate and regular rhythm without murmurs, gallops, or rubs. RESPIRATORY: Good respiratory efforts. Breath sounds equal and clear to auscultation bilaterally. GASTROINTESTINAL: Abdomen soft, non-tender, non-distended. Normal active bowel sounds MUSCULOSKELETAL: Status post right fourth toe amputation. Right great toe nailbed is partially eroded, chronically infected. No active drainage. NEURO: Alert & Oriented x4 to person, place, time, situation. Moves all ext x4 PSYCH: Appropriate mood and affect. A/P Assessment and Plan 62-year-old male with a past medical history of HTN, borderline DM, chronic back pain, and recurrent right foot infections who presented with right foot infection Right great toe osteomyelitis: -Podiatry following. Plan for amputation tomorrow. -Appreciate infectious disease following. Can probably go on oral antibiotics based on findings of surgical amputation -Continue IV antibiotics with vancomycin and Levaquin. Diet-controlled diabetes mellitus: Hemoglobin A1c 6.2, has been in that range for 10 years per patient. Continue diabetic diet. Monitor Accu-Cheks. SSI coverage if needed. Hypertension: Patient states he was recently started on lisinopril, however had throat swelling and was taken off. Currently on no medications. BP currently well controlled. Clonidine as needed. Monitor and adjust medications as needed. Other chronic medical conditions include chronic back pain and insomnia: Stable of this time will continue home medications as indicated. DVT prophylaxis: Heparin Gela Roman MD Apr 21, 2017 11:52
--- NOTE | 2017-04-21 14:57 | HHI.IDPN ---
Note Infectious Disease Note Patient is without complaints. Afebrile. Plans for amputation of the great toe in am. PAST MEDICAL HISTORY 1. Hypertension. 2. Back surgery. 3. History of skin cancer. 4. History of amputation of the right fourth toe because of infection in April 2015. 5. History of right third toe infection treated with intravenous antibiotics ALLERGIES LISINOPRIL CAUSED SWELLING AND CLOSING UP OF THE THROAT. NAPROXEN. MEDICATIONS 1. Vancomycin. 2. Levaquin. OBJECTIVE: Vital Signs Date Time Temp Pulse Resp B/P (MAP) Pulse Ox O2 Delivery O2 Flow Rate FiO2 04/21/17 11:29 96.6 61 18 122/73 (89) 97 04/21/17 09:57 97 04/21/17 08:00 97.4 59 16 114/67 (83) 98 04/21/17 00:00 96.6 71 18 105/68 (80) 97 04/20/17 20:00 96.5 61 18 131/80 (97) 98 04/20/17 15:52 95.8 68 12 126/76 (93) 97 04/20/17 15:02 98.2 68 18 138/83 (101) 96 Laboratory Tests Test 04/19/17 15:30 04/20/17 04:21 White Blood Count 7.9 TH/MM3 4.7 TH/MM3 Red Blood Count 4.82 MIL/MM3 4.62 MIL/MM3 Hemoglobin 14.6 GM/DL 14.4 GM/DL Hematocrit 43.3 % 41.3 % Mean Corpuscular Volume 89.7 FL 89.3 FL Mean Corpuscular Hemoglobin 30.4 PG 31.2 PG Mean Corpuscular Hemoglobin Concent 33.9 % 34.9 % Red Cell Distribution Width 14.3 % 13.9 % Platelet Count 149 TH/MM3 129 TH/MM3 Mean Platelet Volume 9.0 FL 9.5 FL Neutrophils (%) (Auto) 67.4 % 56.8 % Lymphocytes (%) (Auto) 18.8 % 26.1 % Monocytes (%) (Auto) 12.1 % 14.2 % Eosinophils (%) (Auto) 1.2 % 2.1 % Basophils (%) (Auto) 0.5 % 0.8 % Neutrophils # (Auto) 5.3 TH/MM3 2.7 TH/MM3 Lymphocytes # (Auto) 1.5 TH/MM3 1.2 TH/MM3 Monocytes # (Auto) 1.0 TH/MM3 0.7 TH/MM3 Eosinophils # (Auto) 0.1 TH/MM3 0.1 TH/MM3 Basophils # (Auto) 0.0 TH/MM3 0.0 TH/MM3 CBC Comment DIFF FINAL DIFF FINAL Differential Comment Erythrocyte Sedimentation Rate 35 mm/hr Laboratory Tests Test 04/19/17 15:30 04/20/17 04:21 Blood Urea Nitrogen 16 MG/DL 14 MG/DL Creatinine 0.78 MG/DL 0.71 MG/DL Random Glucose 117 MG/DL 112 MG/DL Calcium Level 9.0 MG/DL 8.9 MG/DL Sodium Level 137 MEQ/L 138 MEQ/L Potassium Level 4.0 MEQ/L 4.7 MEQ/L Chloride Level 102 MEQ/L 102 MEQ/L Carbon Dioxide Level 26.9 MEQ/L 29.0 MEQ/L Anion Gap 8 MEQ/L 7 MEQ/L Estimat Glomerular Filtration Rate 100 ML/MIN 112 ML/MIN Hemoglobin A1c 6.2 % C-Reactive Protein 6.52 MG/DL Total Protein 7.0 GM/DL Albumin 3.3 GM/DL Alkaline Phosphatase 59 U/L Aspartate Amino Transf (AST/SGOT) 35 U/L Alanine Aminotransferase (ALT/SGPT) 28 U/L Total Bilirubin 0.9 MG/DL Microbiology Date/Time Source Procedure Growth Status 04/19/17 15:35 Blood Peripheral Aerobic Blood Culture - Preliminary NO GROWTH IN 2 DAYS Resulted 04/19/17 15:35 Blood Peripheral Anaerobic Blood Culture - Preliminary NO GROWTH IN 2 DAYS Resulted 04/19/17 15:30 Blood Peripheral Aerobic Blood Culture - Preliminary NO GROWTH IN 2 DAYS Resulted 04/19/17 15:30 Blood Peripheral Anaerobic Blood Culture - Preliminary NO GROWTH IN 2 DAYS Resulted PHYSICAL EXAMINATION GENERAL: No acute distress. He is awake and alert and oriented. HEENT: No icterus. Oropharynx moist mucosa without lesions. NECK: Supple. No adenopathy. LUNGS: Clear. HEART: Regular rate and rhythm. No murmurs, rubs or gallops. EXTREMITIES: The right great toe is markedly swollen approximately two and a half times the size of the left. The right great toe has less erythema. There is very mild erythema at the base of the toe. There is macerated area at the corner of the nail bed on the outer aspect of the great toe and a little bit of the tuft of the toe. The toe is warm to touch. The rest of the extremities have no clubbing, cyanosis, edema. SKIN: No diffuse rash. NEUROLOGIC: No gross focal findings. PSYCHIATRIC: The patient is calm and cooperative. IMPRESSION 1. Osteomyelitis involving the right great toe. 2. Cellulitis involving the right great toe. RECOMMENDATIONS 1. Continue vancomycin. 2. Continue Levaquin PO. 3. Probable can go on PO antibiotic after the surgical amputation. Please call with surgical culture results if available on weekend. Ian Espino MD Apr 21, 2017 14:57
[2017-04-21 16:00] VITALS: BP 114/73; PULSE 65; RESP 16; TEMP 97.5; O2SAT 95
[2017-04-21 20:00] VITALS: BP 150/70; PULSE 76; RESP 20; TEMP 96.8; O2SAT 97
[2017-04-21] MEDS: LEVOFLOXACIN 750 MG PREMIX INJ 150 ML IV SCH (21:52)
[2017-04-21] MEDS: ALPRAZolam 1 MG TAB PO PRN (21:54)
[2017-04-22 00:04] VITALS: BP 136/77; PULSE 68; RESP 20; TEMP 97.8; O2SAT 99
[2017-04-22] MEDS ORDERED: PHARMACY ORDERED LAB ONE (02:45)
[2017-04-22] MEDS: VANCOMYCIN INJ 1,750 MG in SODIUM CHLORID 0.9% 500 ML INJ 500 ML IV SCH ×2 (03:06→14:57)
[2017-04-22] MEDS ORDERED: traMADol HCL 50 MG TAB PO ONE (06:30)
[2017-04-22] MEDS: INSULIN ASPART SUPPLEMENTAL SCALE SQ SCH ×4 (06:42→20:24)
[2017-04-22 08:00] VITALS: BP 104/63; PULSE 64; RESP 16; TEMP 96.2; O2SAT 95
[2017-04-22] MEDS: SODIUM CHLORIDE 0.9% FLUSH 10 ML FLUSH IV FLUSH SCH ×2 (08:55→20:24)
[2017-04-22] MEDS: BACLOFEN 10 MG TAB PO SCH ×3 (08:55→21:45)
[2017-04-22] MEDS: HEPARIN SODIUM - SQ 10,000 UNITS/ML VIAL SQ SCH ×2 (08:55→20:24)
[2017-04-22 12:00] VITALS: BP 113/71; PULSE 55; RESP 17; TEMP 97.5; O2SAT 98
--- NOTE | 2017-04-22 12:13 | HHI.PR ---
Subjective Remarks Patient upset because his surgeries been delayed until 3 PM today. He has no other complaints. Objective Vitals Vital Signs Date Time Temp Pulse Resp B/P (MAP) Pulse Ox O2 Delivery O2 Flow Rate FiO2 04/22/17 08:00 96.2 64 16 104/63 (77) 95 04/22/17 00:04 97.8 68 20 136/77 (96) 99 04/21/17 20:00 96.8 76 20 150/70 (96) 97 04/21/17 16:00 97.5 65 16 114/73 (87) 95 I/O 04/21/17 04/21/17 04/21/17 04/22/17 04/22/17 04/22/17 07:00 15:00 23:00 07:00 15:00 23:00 Intake Total 470 ml 1080 ml 120 ml Balance 470 ml 1080 ml 120 ml Intake Oral 320 ml 1080 ml 120 ml IV Total 150 ml # Voids 2 6 2 # Bowel Movements 0 2 0 Result Diagram: 04/20/1742004/20/17420 Objective Remarks GENERAL: This is a well-nourished, well-developed patient, in no apparent distress. CARDIOVASCULAR: Normal rate and regular rhythm without murmurs, gallops, or rubs. RESPIRATORY: Good respiratory efforts. Breath sounds equal and clear to auscultation bilaterally. GASTROINTESTINAL: Abdomen soft, non-tender, non-distended. Normal active bowel sounds MUSCULOSKELETAL: Status post right fourth toe amputation. Right great toe nailbed is partially eroded, chronically infected. No active drainage. NEURO: Alert & Oriented x4 to person, place, time, situation. Moves all ext x4 PSYCH: Appropriate mood and affect. A/P Assessment and Plan 62-year-old male with a past medical history of HTN, borderline DM, chronic back pain, and recurrent right foot infections who presented with right foot infection Right great toe osteomyelitis: -Podiatry following. Plan for amputation today -Appreciate infectious disease following. Can probably go on oral antibiotics based on findings of surgical amputation -Continue IV antibiotics with vancomycin and Levaquin. - Tramadol and Baclofen for pain control. Patient has been on the same at home. He wants the morning dose to be at 6:30 AM. This was ordered. Morphine for breakthrough pain. Diet-controlled diabetes mellitus: Hemoglobin A1c 6.2, has been in that range for 10 years per patient. Continue diabetic diet. Monitor Accu-Cheks. SSI coverage if needed. Hypertension: Patient states he was recently started on lisinopril, however had throat swelling and was taken off. Currently on no medications. BP currently well controlled. Clonidine as needed. Monitor and adjust medications as needed. Other chronic medical conditions include chronic back pain and insomnia: Stable of this time will continue home medications as indicated. DVT prophylaxis: Heparin Gela Roman MD Apr 22, 2017 12:13
--- NOTE | 2017-04-22 15:14 | EKG ---
Date Performed: 04/22/2017 Time Performed: 12:49:55 PTAGE: 62 years EKG: SINUS BRADYCARDIA BORDERLINE ECG PREVIOUS TRACING : 05/21/2015 18.04 Compared to prior tracing no significant change DOCTOR: Bradnie Hancock Interpretating Date/Time 04/22/2017 15:12:46
[2017-04-22 16:00] VITALS: BP 117/70; PULSE 52; RESP 17; TEMP 97.6; O2SAT 98
--- NOTE | 2017-04-22 16:03 | PD.POD ---
Past Med/Surg/Social History Past Medical History Endocrine: REPORTS HX OF: Diabetes mellitus Respiratory: REPORTS HX OF: COPD Cardiovascular: REPORTS HX OF: Hypertension Infectious disease: REPORTS HX OF: Chickenpox, Measles, Mumps Past Surgical History HEENT: REPORTS HX OF: Tonsillectomy Musculoskeletal: REPORTS HX OF: Other musculoskeletal srg (back surgery) Breast: DENIES HX OF: Mastectomy, bilateral, Mastectomy, left, Mastectomy, right Social History Smoking Status: Former Smoker Objective Vital Signs Vital Signs Date Time Temp Pulse Resp B/P (MAP) Pulse Ox O2 Delivery O2 Flow Rate FiO2 04/22/17 12:00 97.5 55 17 113/71 (85) 98 04/22/17 08:00 96.2 64 16 104/63 (77) 95 04/22/17 00:04 97.8 68 20 136/77 (96) 99 04/21/17 20:00 96.8 76 20 150/70 (96) 97 Coded Allergies: naproxen (Unverified Allergy, Mild, Rash, 04/19/17) lisinopril (Verified Allergy, Unknown, LIP SWELLING, 04/19/17) Assessment & Plan A/P Osteomyelitis R distal hallux Surgery canceled today due to OR availability with traumas and put on for first case tomorrow morning NPO after midnight Williams Goetz DPM Apr 22, 2017 16:03
--- NOTE | 2017-04-22 16:27 | PD.POD ---
Past Med/Surg/Social History Past Medical History Endocrine: REPORTS HX OF: Diabetes mellitus Respiratory: REPORTS HX OF: COPD Cardiovascular: REPORTS HX OF: Hypertension Infectious disease: REPORTS HX OF: Chickenpox, Measles, Mumps Past Surgical History HEENT: REPORTS HX OF: Tonsillectomy Musculoskeletal: REPORTS HX OF: Other musculoskeletal srg (back surgery) Breast: DENIES HX OF: Mastectomy, bilateral, Mastectomy, left, Mastectomy, right Social History Smoking Status: Former Smoker Objective Vital Signs Vital Signs Date Time Temp Pulse Resp B/P (MAP) Pulse Ox O2 Delivery O2 Flow Rate FiO2 04/22/17 12:00 97.5 55 17 113/71 (85) 98 04/22/17 08:00 96.2 64 16 104/63 (77) 95 04/22/17 00:04 97.8 68 20 136/77 (96) 99 04/21/17 20:00 96.8 76 20 150/70 (96) 97 Coded Allergies: naproxen (Unverified Allergy, Mild, Rash, 04/19/17) lisinopril (Verified Allergy, Unknown, LIP SWELLING, 04/19/17) Assessment & Plan A/P Osteomyelitis R distal hallux Surgery canceled today due to OR availability with traumas and put on for first case tomorrow morning NPO after midnight alexusight Had lengthy discussion with patient that he was not "lied to" or "mistreated " in any way. 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 I explained that I told him we would try for first thing Monday, but there are many factors beyond my control and I have been in close contact with his nurse to explain what is going on and the status. I apologized for him being inconvenienced and not able to eat, but made it clear he was not being mistreated or disregarded in any way. 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 I explained he may choose to leave AMA or follow up with Dr Yang and see if the procedure may be scheduled as an outpatient, which will also entail further inconvenience on his part and delay in care. I explained in great detail that there was never any malicious intent to his delay in surgery, and that these things happen continually in a trauma hospital, and likely in most hospitals , and that no one likes to be in the hospital in the first place. He may decide to cancel tomorrow's surgery as planned vs leave AMA. Discussed with patient it is his body and his decision, but he needs to think it through completely before behaving rashly, as he seems inclined to do at this time. Williams Mcguire DPM Apr 22, 2017 16:27
[2017-04-22 20:00] VITALS: BP 124/80; PULSE 80; RESP 20; TEMP 99.3; O2SAT 95
[2017-04-22] MEDS: LEVOFLOXACIN 750 MG PREMIX INJ 150 ML IV SCH (20:24)
[2017-04-22] MEDS: ALPRAZolam 1 MG TAB PO PRN (20:34)
[2017-04-22] MEDS: traMADol HCL 50 MG TAB PO PRN (21:20)
[2017-04-23] VITALS: BP 105/65; PULSE 62; RESP 19; TEMP 96.8; O2SAT 96
[2017-04-23] MEDS: VANCOMYCIN INJ 1,750 MG in SODIUM CHLORID 0.9% 500 ML INJ 500 ML IV SCH (02:22)
[2017-04-23] MEDS: BACLOFEN 10 MG TAB PO SCH (05:36)
[2017-04-23] MEDS: traMADol HCL 50 MG TAB PO PRN (05:37)
[2017-04-23] MEDS: INSULIN ASPART SUPPLEMENTAL SCALE SQ SCH ×2 (05:38→11:00)
[2017-04-23] MEDS ORDERED: BACLOFEN 10 MG TAB PO SCH (07:00)
[2017-04-23] MEDS ORDERED: traMADol HCL 50 MG TAB PO PRN (07:00)
[2017-04-23 08:00] VITALS: BP 105/65; PULSE 63; RESP 16; TEMP 97.1; O2SAT 99
[2017-04-23] MEDS: SODIUM CHLORIDE 0.9% FLUSH 10 ML FLUSH IV FLUSH SCH (08:38)
[2017-04-23] MEDS: HEPARIN SODIUM - SQ 10,000 UNITS/ML VIAL SQ SCH (08:38)
[2017-04-23 09:25] VITALS: PULSE 64
[2017-04-23] MEDS ORDERED: LIDOCAINE HCL 2% 50 ML VIAL ONE (09:46)
[2017-04-23] MEDS ORDERED: DO NOT ADM ANY ANTICOAGULANT DRUGS PRN (11:19)
[2017-04-23] MEDS ORDERED: fentaNYL CITRATE 250 MCG/5 ML AMP ONE (11:23)
--- NOTE | 2017-04-23 11:23 | HHI.PR ---
Immediate Post Op Note Procedure Date: Apr 23, 2017 Pre Op Diagnosis: Osteomyelitis R distal phalanx of hallux Post Op Diagnosis: same Surgeon: Williams Mcguire DPM Civil Preparedness Training Officer(s): Staff Procedure: Amputation distal R hallux Findings: Consistent with diagnosis. R distal hallux with dusky appearance and mild purulence at nail bed area. Two semielliptical incisions made dorsal/plantar to disarticulate distal phalanx of hallux at IPJ level. Healthy white viable appearance to cartilage cap of distal aspect of proximal phalanx. Distal hallux sent to pathology and culture taken of wound. Irrigation with NS, followed by primary closure with 2-0 nylon, xeroform, 4x4, cling, rosi. WBAT in surgical shoe. No further surgical treatment planned. Ok to d/c on oral antibiotics x 2 weeks per operative culture results when they come in, as no further necrotic bone noted in wound. All infected bone removed in its entirety. Follow up in clinic in 1-2 weeks. Additional Information: all infected bone removed in its entirety. No evidence of infected tissue remained prior to closure Complications: none Specimen(s) removed: R distal hallux Culture R hallux Estimated blood loss: minimal Anesthesia: General, Local (10mL 0.5% marcaine plain) Drains: None IVF Tourniquet time (min at mmHg) n/a Patient to: PACU Patient Condition: Good Date/Time of Procedure: SEE SURGICAL CARE RECORD Williams Mcguire DPM Apr 23, 2017 11:23
--- NOTE | 2017-04-23 11:51 | RADRPT ---
EXAM DATE/TIME: 04/23/2017 11:18 [facility] COMPARISON: MRI FOOT RIGHT W & W/O CONTRAST, April 19, 2017, 19:46. FOOT RIGHT COMPLETE ([id number]), April, 14:32. INDICATIONS : Post right foot great toe amputaion MEDICAL HISTORY : Cellulitis SURGICAL HISTORY : Tonsillectomy. Discectomy, lumbar. Right toe surgery. ENCOUNTER: Subsequent ACUITY: 1 month PAIN SCORE: 0/10 LOCATION: Right Foot FINDINGS: 3 views of the postoperative right foot demonstrate interval indentation of the first digit at the le carina of the distal phalanx. There has been prior removal of the fourth digit proximal middle and dista l phalanx. The osseous structures and a normal mineralization. CONCLUSION: Status post interval removal of the distal phalanx of the first digit. Expected postsurgical changes. Tracy Danielle MD on April 23, 2017 at 11:47 Board Certified Radiologist. This report was verified electronically.
[2017-04-23 12:00] VITALS: BP 118/69; PULSE 55; RESP 16; TEMP 96.8; O2SAT 98
[2017-04-23] MEDS ORDERED: LEVO500T8 PO (12:57)
--- NOTE | 2017-04-23 12:57 | HHI.DCPOC ---
Discharge Care Plan Diagnosis: (1) Toe osteomyelitis (2) Amputated toe of right foot Goals to Promote Your Health * To prevent worsening of your condition and complications * To maintain your health at the optimal level Directions to Meet Your Goals Take your medications as prescribed Follow your dietary instruction Follow activity as directed Keep your appointments as scheduled Take your immunizations and boosters as scheduled If your symptoms worsen call your PCP, if no PCP go to Urgent Care Center or Emergency Room Smoking is Dangerous to Your Health. Avoid second hand smoke Call the 24-hour hour crisis hotline for domestic abuse at Gela Roman MD Apr 23, 2017 12:57
--- NOTE | 2017-04-23 13:02 | HHI.DS ---
Discharge Summary Admission Date Apr 20, 2017 at 08:45 Discharge Date: Apr 23, 2017 Admitting Diagnosis cellulitis right foot (1) Toe osteomyelitis ICD Code: M86.9 - Osteomyelitis, unspecified (2) Amputated toe of right foot ICD Code: Z89.421 - Amputated toe of right foot Status: Acute (3) Diabetes ICD Code: E11.9 - Type 2 diabetes mellitus without complications Procedures Right hallux amputation, debridement. Brief History - From Admission 62-year-old male with a past medical history of HTN, borderline DM, chronic back pain, and recurrent right foot infections who presented with right foot infection. The patient states that last weekend he noticed a blister on his right great toe. He states the blister started oozing around Monday. He states that he was using topical Silvadene on it. He states that yesterday the toe became more red and swollen. He called his nipple maker, Dr. Yang, and has an appointment to see him next week. The patient felt like the infection in his foot was getting worse today so he came to the ED for evaluation. When asked about any injury, the patient does recall that he ran over his toe with grocery cart about a month ago. The patient denies any fevers or chills. He does have a history of right fourth toe amputation. He also had been dealing with right third toe infection last spring. Podiatry was contacted from the ED and recommended MRI and consultation. CBC/BMP: 04/20/17 0421 04/20/17 0421 Significant Findings Laboratory Tests Test 04/22/17 02:45 Vancomycin Level Trough 14.9 MCG/ML (5.0-10.0) Imaging Last Impressions Foot X-Ray 04/23/17 0000 Signed Impressions: Service Date/Time: Sunday, April 23, 2017 11:18 - CONCLUSION: Status post interval removal of the distal phalanx of the first digit. Expected postsurgical changes. Tracy Danielle MD Toe X-Ray 04/19/17 1514 Signed Impressions: Service Date/Time: Wednesday, April 19, 2017 15:06 - CONCLUSION: 1. Subacute fracture of the tuft of the great toe. Jb Keane Jr., MD Lower Extremity MRI 04/19/17 0000 Signed Impressions: Service Date/Time: Wednesday, April 19, 2017 19:46 - CONCLUSION: 1. Subcutaneous edema and mild enhancement in the soft tissues of the medial calf characteristic of mild cellulitis. No discrete abscess. No evidence for osteomyelitis. Ventura Vu MD Foot MRI 04/19/17 0000 Signed Impressions: Service Date/Time: Wednesday, April 19, 2017 19:46 - CONCLUSION: 1. Abnormal marrow edema, marrow enhancement and soft tissue swelling involving the distal phalanx great toe most characteristic of osteomyelitis. No other areas of osteomyelitis identified. Ventura Vu MD PE at Discharge GENERAL: This is a well-nourished, well-developed patient, in no apparent distress. CARDIOVASCULAR: Normal rate and regular rhythm without murmurs, gallops, or rubs. RESPIRATORY: Good respiratory efforts. Breath sounds equal and clear to auscultation bilaterally. GASTROINTESTINAL: Abdomen soft, non-tender, non-distended. Normal active bowel sounds MUSCULOSKELETAL: Status post right fourth toe amputation. Right great toe nailbed is partially eroded, chronically infected. No active drainage. NEURO: Alert & Oriented x4 to person, place, time, situation. Moves all ext x4 PSYCH: Appropriate mood and affect. Pt update on day of discharge Patient reports he is feeling well. He is status post right hallux amputation and debridement. All infected tissues removed per nipple maker's report. Hospital Course 62-year-old male with a past medical history of HTN, borderline DM, chronic back pain, and recurrent right foot infections who presented with right foot infection. The patient was followed by podiatry. He underwent right hallux amputation. All infected tissue was removed per nipple maker's report. He was initially treated with IV vancomycin and Levaquin. He was seen by infectious disease. Patient did well postoperatively. He is discharged on oral antibiotics. He is advised to follow up outpatient with podiatry. Diet-controlled diabetes mellitus: Hemoglobin A1c 6.2, has been in that range for 10 years per patient. Continue diabetic diet. Hypertension: Patient states he was recently started on lisinopril, however had throat swelling and was taken off. Currently on no medications. BP currently well controlled. He did not require antihypertensives. Other chronic medical conditions include chronic back pain and insomnia: Stable of this time will continue home medications. Pt Condition on Discharge: Good Discharge Disposition: Discharge Home Discharge Time: <= 30 minutes Discharge Instructions DIET: Follow Instructions for: Heart Healthy Diet Activities you can perform: Regular-No Restrictions, See Additionl Instruction Other Activity Instructions: Keep using post op shoe as instructed. Follow up Referrals: Podiatry New Medications: Levofloxacin (Levofloxacin) 500 Mg Tablet 500 MG PO DAILY for Infection, #14 TAB 0 Refills Continued Medications: Alprazolam (Alprazolam) 1 Mg Tab 1 MG PO HS PRN for ANXIETY, TAB 0 Refills Baclofen (Baclofen) 10 Mg Tab 10 MG PO TID for Muscle Spasm, TAB 0 Refills Tramadol (Tramadol) 50 Mg Tab 100 MG PO BID PRN for PAIN, TAB 0 Refills Gela Roman MD Apr 23, 2017 13:02
[2017-04-23] MEDS ORDERED: PHARMACY ORDERED LAB ONE (14:45)
[2017-04-23] MEDS ORDERED: ePHEDrine/NS 25 MG/5 ML SYR IV ONE (15:09)
[2017-04-23] MEDS ORDERED: ONDANSETRON HCL 4 MG/2 ML VIAL IV PUSH ONE (15:09)
[2017-04-23] MEDS ORDERED: PROPOFOL 200 MG/20 ML AMP IV ONE (15:09)
--- NOTE | 2017-05-01 10:53 | MP ---
cc: ADELINA PARNELL DPM DATE OF SURGERY April 23, 2017 INDICATIONS FOR PROCEDURE This patient presented with infection to the right distal hallux with purulent drainage coming from the area. He had an MRI performed that showed evidence of osteomyelitis to the distal aspect of the great toe. I discussed with him a partial amputation of the right great toe and he consented to move forward with the procedure. PROCEDURE PERFORMED He was seen in preop holding by myself, nursing staff and Anesthesia where the correct patient side and site were all confirmed be correct in the right foot. He was then taken to the surgical suite, placed in supine position where the right foot was prepped and draped in normal sterile fashion after timeouts were performed as per hospital protocol. Attention was directed to the distal aspect of the great toe. It had a dusky appearance to the distal aspect with a mild purulent drainage at the nail bed area. Two semi elliptical incisions were made both dorsally and plantarly in order to disarticulate the distal phalanx of the hallux at the level of the interphalangeal joint. Upon removal of the distal aspect of the great toe, there was healthy, white, viable-appearing cartilage noted to the distal aspect of the proximal phalanx. The distal hallux and digit skin were sent to pathology as a specimen and a culture was taken of the wound followed by irrigation with normal saline and then followed by closure with 2-0 nylon primarily, followed by Xeroform, 4x4s, Carmen and an Tom bandage. He tolerated the procedure and anesthesia well without complications and was taken to the PACU with vital signs stable and vascular status intact to the remainder of the right foot. He will be weightbearing as tolerated in surgical shoe and, since all infected bone was removed in its entirety, I would like the patient to be discharged on oral antibiotics x 2 weeks for operative culture or broad-spectrum if they are negative and follow up in clinic in 1-2 weeks for dressing change and suture removal. SHORT OPERATIVE NOTE SURGEON Adelina Parnell DPM REGULATORY COMPLIANCE COORDINATOR Staff. PREOPERATIVE DIAGNOSIS Osteomyelitis right distal phalanx of hallux. POSTOP DIAGNOSIS Same. PROCEDURE Amputation distal right hallux. PATHOLOGY 1. Distal right hallux to pathology. 2. Culture right hallux. ESTIMATED BLOOD LOSS Minimal. ANESTHESIA General endotracheal anesthesia plus local consisting of 10 mL of 0.5% Marcaine plain. TOURNIQUET TIME No tourniquet was utilized. COMPLICATIONS None. CONDITION Stable to PACU. DISPOSITION Weightbearing as tolerated in surgical shoe. FOLLOWUP In clinic in 1-2 weeks. DISCHARGE MEDICATIONS Discharge on oral antibiotics per culture results. Adelina MACIAS/EUNICE /6:13 PM /10:43 AM
== END 2017-04-23 14:39 | disposition home or self-care (01) | DRG 617 ==
LOC: NEPD 12:56 → NEDA 17:02 → NEPGCP 20:04 → OBSVTOIN 04-20 08:45 → INTOOBSV 04-20 08:45 → N07B 04-20 15:34
PROVIDERS: ADMIT Family Medicine; ATTEND Family Medicine
PROC: 0Y6P0Z3 Detachment at Right 1st Toe, Low, Open Approach (ICD-10-PCS; principal; 2017-04-23 10:34)
DX: E11.69 Type 2 diabetes mellitus with other specified complication (principal); M86.9 Osteomyelitis, unspecified; L03.115 Cellulitis of right lower limb; Z53.8 Procedure and treatment not carried out for other reasons; J44.9 Chronic obstructive pulmonary disease, unspecified; G89.29 Other chronic pain; M54.9 Dorsalgia, unspecified; G47.00 Insomnia, unspecified; F12.90 Cannabis use, unspecified, uncomplicated; Z87.891 Personal history of nicotine dependence; S92.401A Displaced unspecified fracture of right great toe, initial encounter for closed fracture; Z89.421 Acquired absence of other right toe(s); X58.XXXA Exposure to other specified factors, initial encounter; Y93.89 Activity, other specified; Y92.512 Supermarket, store or market as the place of occurrence of the external cause; Z82.49 Family history of ischemic heart disease and other diseases of the circulatory system; Z85.828 Personal history of other malignant neoplasm of skin; Z86.19 Personal history of other infectious and parasitic diseases
CPT/HCPCS: 73630; 73660; 73720; 76937; 80048; 80053; 80202; 82948; 83036; 85025; 85652; 86140; 86403; 87015; 87040; 87070; 87102; 87116; 87205; 87206; 88305; 88311; 93005; 96365; 96366; 96367; 96372; 96376; A9579; G0378; J1644; J1956; J2405; J3010; J3370; J7040; J7050; L3260